=== PATIENT | female | born 1945 ===

== ENCOUNTER 2024-10-17 05:45 | Day surgery (SDC) | payer OTHER ==
[2024-10-03 08:59] LABS: URINE APPEARANCE Clear; URINE BILIRRUBIN Negative (NEGATIVE); URINE BLOOD Moderate; URINE COLOR Yellow; URINE GLUCOSE Negative (NEGATIVE); URINE KETONE Negative (NEGATIVE); URINE LEUKOCYTE Moderate; URINE NITRATE Negative; URINE PROTEIN Negative (NEGATIVE); URINE UROBILINOGEN 0.2 E.U./dl
[2024-10-03 09:00] LABS: HEMOGLOBIN 12.7 g/dL (12.0-15.00); MEAN CELL VOLUME 89.7 fL (80.00-100.00); MEAN CORPUSCULAR HGB CONC 33.5 g/dl (32.0-36.0); PLATELET COUNT 309 K/uL (150-450); RED BLOOD COUNT 4.24 M/uL (4.00-6.00); RED CELL DISTRIBUTION WIDTH 13.7 % (11.5-14.5)
[2024-10-03 09:04] LABS: URINE EPITHELIAL CELLS 28.2 uL (0.0-38.8); URINE WBC 8.8 uL (0.0-23.2)
[2024-10-03 09:05] LABS: URINE CAST 0.14 uL (0.0-1.40)
[2024-10-03 09:13] LABS: INR 0.99; PARTIAL THROMBOPLASTIN TIME 25.4 SECONDS (22.0-34.0); PROTHROMBIN TIME 10.8 SECONDS (9.0-11.5)
[2024-10-03 09:54] LABS: ALBUMIN 3.5 gm/dL (3.4-5.0); BILIRUBIN TOTAL 0.33 mg/dL (0.3-1.2); CALCIUM 9.3 mg/dL (8.5-10.1); CREATININE SERUM 0.85 mg/dL (0.55-1.02); GFR 64.85; GLOBULINA 3.8 G/DL (2.4-3.5); POTASSIUM 3.99 mEq/L (3.5-5.1); TOTAL PROTEIN 7.3 gm/dL (6.4-8.2)
[~2024-10-17] VITALS: Ht 157.5 cm; Wt 72.6 kg
[~2024-10-17 05:45] MED LIST: EFFEXOR XR75 MG PO; LEVOTHYROXINE25 MCG PO; LOPRESSOR25 MG PO; NORVASC5 MG PO; SEROQUEL25 MG PO
[2024-10-17] MEDS ORDERED: CLINDAMYCIN PHOSPHATE 150 MG/ML (900mg) ONE (08:18)
[2024-10-17] MEDS ORDERED: KETOROLAC TROMETHAMINE 30 MG VIAL ONE (10:22)
[2024-10-17] MEDS ORDERED: LIDOCAINE HCL 1%/EPINEPHRINE 20ML VIAL IJ ONE (10:23)
[2024-10-17] MEDS ORDERED: BUPIVACAINE HCL/MPF 0.5% 30ML VIAL ONE (10:23)
[2024-10-17 16:18] VITALS: BP 130/69; O2SAT 100
== END 2024-10-17 13:50 | disposition home or self-care (01) ==
LOC: CIR.AMB 05:45
PROVIDERS: ATTEND Orthopaedic Surgery
DX: M75.121 Complete rotator cuff tear or rupture of right shoulder, not specified as traumatic (principal); M75.21 Bicipital tendinitis, right shoulder; M24.111 Other articular cartilage disorders, right shoulder; Z88.0 Allergy status to penicillin; I10 Essential (primary) hypertension; G47.30 Sleep apnea, unspecified; E03.8 Other specified hypothyroidism; F32.A Depression, unspecified